=== PATIENT | male | born 2000 | race Caucasian/White ===

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

== ENCOUNTER 2023-12-18 12:54 | Emergency (ER) | payer OTHER ==
[2023-12-18 13:27] VITALS: BP 133/82; PULSE 64; RESP 18; TEMP 98.5; BMI 26.6
[2023-12-18] MEDS ORDERED: IBUPROFEN 600 MG TABLET (FP) PO ONE (14:29)
[2023-12-18] MEDS ORDERED: DIPHTH,PERTUSS(ACELL),TET 0.5 ML DISP.SYRIN IM ONE (14:29)
[2023-12-18] MEDS: DIPHTH,PERTUSS(ACELL),TET 0.5 ML DISP.SYRIN IM ONE (14:32)
[2023-12-18] MEDS: IBUPROFEN 600 MG TABLET (FP) PO ONE (14:33)
== END 2023-12-18 14:41 | disposition home or self-care (01) ==
LOC: JERFT 12:54
PROC: 0XQVXZZ Repair Right Little Finger, External Approach (ICD-10-PCS; principal; 2023-12-18)
PROC: 3E0234Z Introduction of Serum, Toxoid and Vaccine into Muscle, Percutaneous Approach (ICD-10-PCS; 2023-12-18)
DX: S61.216A Laceration without foreign body of right little finger without damage to nail, initial encounter (principal); W23.1XXA Caught, crushed, jammed, or pinched between stationary objects, initial encounter; Z23 Encounter for immunization
CPT/HCPCS: 73130-TC-RT-FY; 90715; 99284-25